=== PATIENT | male | born 1980 | race African-American/Black ===

== ENCOUNTER 2018-06-19 01:06 | Emergency (ER) | payer SELFPAY ==
[~2018-06-19] VITALS: Ht 185.4 cm; Wt 86.5 kg
[2018-06-19] MEDS ORDERED: ACETAMINOPHEN 325MG TABLET PO ONE (02:45)
[2018-06-19 02:48] VITALS: BP 130/89
== END 2018-06-19 02:49 | disposition home or self-care (01) ==
LOC: ER 01:24
DX: T23.102A Burn of first degree of left hand, unspecified site, initial encounter (principal); X08.8XXA Exposure to other specified smoke, fire and flames, initial encounter; Y93.89 Activity, other specified; Y92.89 Other specified places as the place of occurrence of the external cause; Y99.8 Other external cause status
CPT/HCPCS: 99283